=== PATIENT | male | born 1980 | race Caucasian/White ===

== ENCOUNTER 2017-05-26 14:53 | Emergency (ER) | payer MEDICAID ==
[2015-11-09 10:18] VITALS: BMI 32.4
[~2017-05-26 14:53] MED LIST: BACITRACIN15 GM TP; CHLORPROMAZINE200 MG PO; DAKIN'S 0.25%480 ML TOPICAL; DEPAKOTE ER500 MG PO; GAS-X125 M1 PO; KEPPRA500 MG PO; MYLANTA / MAALO30 ML PO; PROPRANOLOL HCL80 MG PO; SEROQUEL100 MG PO; SEROQUEL200 MG PO; SEROQUEL400 MG PO; ULTRAM50 MG PO
[2017-05-26 15:47] LABS: BASOPHILS 0.2 % (0-2); EOSINOPHILS 0.2 % (0-7); HEMATOCRIT 43.8 % (42.0-54.0); IMMATURE GRANULOCYTES 0.2 % (0-5); LYMPHOCYTES 26.9 % (15-50); MCH 29.1 pg (26.0-34.0); MCHC 34.2 g/dL (31.0-37.0); MEAN PLATELET VOLUME 9.6 fL (7.4-10.4); MONOCYTES 6.5 % (2-11); RBC 5.15 10x6/uL (4.20-6.10); RDW 14.3 % (11.5-14.5); WBC 5.1 10x3/uL (4.8-10.8)
[2017-05-26 15:52] LABS: PLATELET COUNT 214 10x3/uL (130-400)
[2017-05-26 15:56] LABS: APPEARANCE CLEAR (CLEAR); BILIRUBIN NEGATIVE (NEGATIVE); COLOR YELLOW (YELLOW); GLUCOSE NEGATIVE (NEGATIVE); KETONE NEGATIVE (NEGATIVE); LEUKOCYTE ESTERASE NEGATIVE (NEGATIVE); NITRITE NEGATIVE (NEGATIVE); PROTEIN NEGATIVE (NEGATIVE); SPECIFIC GRAVITY 1.015 (1.005-1.020); UROBILINOGEN NORMAL (NORMAL)
[2017-05-26 16:11] LABS: ALBUMIN 3.8 g/dL (3.4-5.0); ALKALINE PHOSPHATASE 155 U/L (46-116); ALT (SGPT) 60 U/L (10-68); BILIRUBIN - TOTAL 0.49 mg/dL (0.2-1.3); CALC OSMOLALITY 275 mosm/kg (275-300); CALCIUM 9.2 mg/dL (8.5-10.1); CARBON DIOXIDE 27.6 mmol/L (21.0-32.0); CHLORIDE - SERUM 103 mmol/L (98-107); CREATININE - SERUM 0.9 mg/dL (0.6-1.3); GLUCOSE 95 mg/dL (74-106); POTASSIUM - SERUM 3.6 mmol/L (3.5-5.1); PROTEIN - SERUM 8.3 g/dL (6.4-8.2); SODIUM 138 mmol/L (136-145); UREA NITROGEN 13 mg/dL (7-18); eGFR NON AFRICAN AMERICAN > 90 mL/min (90-120)
[2017-05-26 16:13] LABS: UDS - AMPHET NEGATIVE QUAL (NEGATIVE); UDS - BARB NEGATIVE QUAL (NEGATIVE); UDS - BENZO NEGATIVE QUAL (NEGATIVE); UDS - COCAINE NEGATIVE QUAL (NEGATIVE); UDS - METH NEGATIVE QUAL (NEGATIVE); UDS - OPIATE NEGATIVE QUAL (NEGATIVE); UDS - PCP NEGATIVE QUAL (NEGATIVE); UDS - THC NEGATIVE QUAL (NEGATIVE)
== END 2017-05-27 03:02 | disposition home or self-care (01) ==
LOC: D.ER 14:53
PROVIDERS: Family Medicine
DX: T14.91 Suicide attempt (principal); X83.8XXA Intentional self-harm by other specified means, initial encounter; Y93.89 Activity, other specified; Y92.89 Other specified places as the place of occurrence of the external cause; I10 Essential (primary) hypertension; Z91.5 Personal history of self-harm

== ENCOUNTER 2017-08-12 12:06 | Emergency (ER) | payer MEDICAID ==
[2015-11-09 10:18] VITALS: BMI 32.4
== END 2017-08-12 13:02 | disposition left against medical advice (07) ==
LOC: D.ER 12:06
DX: F41.9 Anxiety disorder, unspecified (principal); R46.89 Other symptoms and signs involving appearance and behavior; I10 Essential (primary) hypertension; Z86.59 Personal history of other mental and behavioral disorders

== ENCOUNTER 2017-08-13 05:46 | Emergency (ER) | payer MEDICAID ==
[2015-11-09 10:18] VITALS: BMI 32.4
[2017-08-13 06:17] LABS: BASOPHILS 0.3 % (0-2); EOSINOPHILS 0.3 % (0-7); HEMATOCRIT 32.7 % (42.0-54.0); HEMOGLOBIN 10.9 g/dL (13.5-17.5); IMMATURE GRANULOCYTES 0.1 % (0-5); LYMPHOCYTES 27.2 % (15-50); MCH 28.5 pg (26.0-34.0); MCHC 33.3 g/dL (31.0-37.0); MCV 85.4 fL (80.0-100.0); MEAN PLATELET VOLUME 10.3 fL (7.4-10.4); MONOCYTES 8.8 % (2-11); NEUTROPHILS 63.3 % (40-80); RBC 3.83 10x6/uL (4.20-6.10); RDW 13.6 % (11.5-14.5); WBC 7.4 10x3/uL (4.8-10.8)
[2017-08-13 06:21] LABS: PLATELET COUNT 405 10x3/uL (130-400)
[2017-08-13 06:21] LABS: UDS - AMPHET NEGATIVE QUAL (NEGATIVE); UDS - BARB NEGATIVE QUAL (NEGATIVE); UDS - BENZO POSITIVE QUAL (NEGATIVE); UDS - COCAINE NEGATIVE QUAL (NEGATIVE); UDS - OPIATE POSITIVE QUAL (NEGATIVE); UDS - PCP NEGATIVE QUAL (NEGATIVE); UDS - THC NEGATIVE QUAL (NEGATIVE)
[2017-08-13 06:32] LABS: ALBUMIN 3.4 g/dL (3.4-5.0); ANION GAP 14.2 mmol/L (8-16); BILIRUBIN - TOTAL 0.62 mg/dL (0.2-1.3); CALCIUM 9.2 mg/dL (8.5-10.1); CARBON DIOXIDE 25.5 mmol/L (21.0-32.0); CREATININE - SERUM 1.5 mg/dL (0.6-1.3); POTASSIUM - SERUM 3.7 mmol/L (3.5-5.1); PROTEIN - SERUM 7.2 g/dL (6.4-8.2)
[2017-08-13 06:33] LABS: APPEARANCE CLEAR (CLEAR); BILIRUBIN NEGATIVE (NEGATIVE); COLOR YELLOW (YELLOW); GLUCOSE NEGATIVE (NEGATIVE); KETONE NEGATIVE (NEGATIVE); NITRITE NEGATIVE (NEGATIVE); PROTEIN TRACE mg/dL (NEGATIVE); SPECIFIC GRAVITY 1.015 (1.005-1.020); UROBILINOGEN NORMAL (NORMAL)
[2017-08-13 06:35] LABS: BACTERIA FEW /hpf (NONE SEEN); EPITHELIAL CELLS 0-5 /hpf (0-5); RED CELLS - URINE 0-5 /hpf (0-5); WHITE CELLS - URINE 0-5 /hpf (0-5)
== END 2017-08-13 05:49 | disposition home or self-care (01) ==
LOC: D.ER 05:46
PROVIDERS: Emergency Medicine
DX: R45.851 Suicidal ideations (principal); Z86.59 Personal history of other mental and behavioral disorders; I10 Essential (primary) hypertension; Z91.5 Personal history of self-harm; F17.200 Nicotine dependence, unspecified, uncomplicated

== ENCOUNTER 2017-09-22 17:52 | Emergency (ER) | payer SELFPAY ==
[2015-11-09 10:18] VITALS: BMI 32.4
== END 2017-09-22 20:55 | disposition home or self-care (01) ==
LOC: D.ER 17:52
DX: M25.561 Pain in right knee (principal); F41.9 Anxiety disorder, unspecified; I10 Essential (primary) hypertension

== ENCOUNTER 2017-09-23 07:42 | Emergency (ER) | payer SELFPAY ==
[2015-11-09 10:18] VITALS: BMI 32.4
== END 2017-09-23 08:36 | disposition home or self-care (01) ==
LOC: D.ER 07:42
DX: F33.9 Major depressive disorder, recurrent, unspecified (principal); S11.81XA Laceration without foreign body of other specified part of neck, initial encounter; X78.8XXA Intentional self-harm by other sharp object, initial encounter; Y93.89 Activity, other specified; Y92.019 Unspecified place in single-family (private) house as the place of occurrence of the external cause; Z76.5 Malingerer [conscious simulation]; I10 Essential (primary) hypertension; Z86.59 Personal history of other mental and behavioral disorders

== ENCOUNTER 2017-09-29 00:29 | Emergency (ER) | payer SELFPAY ==
[2015-11-09 10:18] VITALS: BMI 32.4
== END 2017-09-29 01:15 | disposition home or self-care (01) ==
LOC: D.ER 00:29
DX: L03.115 Cellulitis of right lower limb (principal); Y28.8XXA Contact with other sharp object, undetermined intent, initial encounter; Y93.89 Activity, other specified; Y92.89 Other specified places as the place of occurrence of the external cause; I10 Essential (primary) hypertension; Z86.59 Personal history of other mental and behavioral disorders

== ENCOUNTER 2017-10-05 07:54 | Emergency (ER) | payer SELFPAY ==
[2015-11-09 10:18] VITALS: BMI 32.4
== END 2017-10-05 09:05 | disposition home or self-care (01) ==
LOC: D.ER 07:54
DX: L03.116 Cellulitis of left lower limb (principal); L03.115 Cellulitis of right lower limb; M79.605 Pain in left leg; M79.604 Pain in right leg; I10 Essential (primary) hypertension

== ENCOUNTER 2017-10-07 00:38 | Emergency (ER) | payer SELFPAY ==
[2015-11-09 10:18] VITALS: BMI 32.4
== END 2017-10-07 02:20 | disposition home or self-care (01) ==
LOC: D.ER 00:38
DX: J11.1 Influenza due to unidentified influenza virus with other respiratory manifestations (principal); I10 Essential (primary) hypertension

== ENCOUNTER 2017-10-07 04:21 | Emergency (ER) | payer SELFPAY ==
[2015-11-09 10:18] VITALS: BMI 32.4
== END 2017-10-07 04:44 | disposition home or self-care (01) ==
LOC: D.ER 04:21
DX: L03.116 Cellulitis of left lower limb (principal); I10 Essential (primary) hypertension; Z86.59 Personal history of other mental and behavioral disorders; F17.200 Nicotine dependence, unspecified, uncomplicated

== ENCOUNTER 2017-10-08 18:28 | Emergency (ER) | payer MEDICARE ==
[2015-11-09 10:18] VITALS: BMI 32.4
[2017-10-08 19:15] LABS: BASOPHILS 0.2 % (0-2); EOSINOPHILS 0 % (0-7); HEMATOCRIT 35.4 % (42.0-54.0); HEMOGLOBIN 11.3 g/dL (13.5-17.5); IMMATURE GRANULOCYTES 0.2 % (0-5); LYMPHOCYTES 39.4 % (15-50); MCH 26.9 pg (26.0-34.0); MCHC 31.9 g/dL (31.0-37.0); MCV 84.3 fL (80.0-100.0); MEAN PLATELET VOLUME 9.9 fL (7.4-10.4); MONOCYTES 7.8 % (2-11); NEUTROPHILS 52.4 % (40-80); PLATELET COUNT 377 10x3/uL (130-400); RDW 14.6 % (11.5-14.5); WBC 5.5 10x3/uL (4.8-10.8)
[2017-10-08 19:17] LABS: APPEARANCE HAZY (CLEAR); BILIRUBIN NEGATIVE (NEGATIVE); COLOR YELLOW (YELLOW); GLUCOSE NEGATIVE (NEGATIVE); KETONE NEGATIVE (NEGATIVE); NITRITE NEGATIVE (NEGATIVE); PROTEIN NEGATIVE (NEGATIVE); SPECIFIC GRAVITY 1.025 (1.005-1.020); UROBILINOGEN NORMAL (NORMAL)
[2017-10-08 19:22] LABS: UDS - AMPHET NEGATIVE QUAL (NEGATIVE); UDS - BARB NEGATIVE QUAL (NEGATIVE); UDS - BENZO NEGATIVE QUAL (NEGATIVE); UDS - COCAINE NEGATIVE QUAL (NEGATIVE); UDS - OPIATE NEGATIVE QUAL (NEGATIVE); UDS - PCP NEGATIVE QUAL (NEGATIVE); UDS - THC POSITIVE QUAL (NEGATIVE)
[2017-10-08 19:23] LABS: ALKALINE PHOSPHATASE 163 U/L (46-116); ALT (SGPT) 29 U/L (10-68); BILIRUBIN - TOTAL 0.22 mg/dL (0.2-1.3); CALC OSMOLALITY 277 mosm/kg (275-300); CALCIUM 9.8 mg/dL (8.5-10.1); CARBON DIOXIDE 27.8 mmol/L (21.0-32.0); CHLORIDE - SERUM 102 mmol/L (98-107); CREATININE - SERUM 0.7 mg/dL (0.6-1.3); GLUCOSE 89 mg/dL (74-106); POTASSIUM - SERUM 4.5 mmol/L (3.5-5.1); PROTEIN - SERUM 7.7 g/dL (6.4-8.2); SODIUM 139 mmol/L (136-145); UREA NITROGEN 15 mg/dL (7-18); eGFR NON AFRICAN AMERICAN > 90 mL/min (90-120)
[2017-10-08 19:35] LABS: EPITHELIAL CELLS 0-5 /hpf (0-5); RED CELLS - URINE 0-5 /hpf (0-5)
[2017-10-08 19:36] LABS: BACTERIA MANY /hpf (NONE SEEN); CALCIUM OXALATE CRYSTALS 0-5 /hpf (NONE SEEN); HYALINE CAST OCC /lpf (NONE SEEN); MUCUS >1+ /lpf (NONE SEEN)
== END 2017-10-09 07:55 | disposition home or self-care (01) ==
LOC: D.ER 18:28
PROVIDERS: Physician Assistant Medical
DX: R45.851 Suicidal ideations (principal); F41.9 Anxiety disorder, unspecified; F23 Brief psychotic disorder

== ENCOUNTER 2017-10-12 23:47 | Emergency (ER) | payer MEDICARE ==
[2015-11-09 10:18] VITALS: BMI 32.4
== END 2017-10-13 00:58 | disposition home or self-care (01) ==
LOC: D.ER 23:47
DX: M79.652 Pain in left thigh (principal); M79.651 Pain in right thigh; G89.29 Other chronic pain; I10 Essential (primary) hypertension; Z91.5 Personal history of self-harm

== ENCOUNTER 2017-10-21 00:57 | Emergency (ER) | payer MEDICARE ==
[2015-11-09 10:18] VITALS: BMI 32.4
[2017-10-21 01:42] LABS: BASOPHILS 0.3 % (0-2); EOSINOPHILS 0.3 % (0-7); HEMATOCRIT 37.9 % (42.0-54.0); HEMOGLOBIN 12.5 g/dL (13.5-17.5); LYMPHOCYTES 53.2 % (15-50); MCH 26.4 pg (26.0-34.0); MCV 80.1 fL (80.0-100.0); MEAN PLATELET VOLUME 10.4 fL (7.4-10.4); MONOCYTES 10.1 % (2-11); NEUTROPHILS 36.1 % (40-80); RBC 4.73 10x6/uL (4.20-6.10); RDW 14.1 % (11.5-14.5); WBC 3.3 10x3/uL (4.8-10.8)
[2017-10-21 01:47] LABS: PLATELET COUNT 255 10x3/uL (130-400)
[2017-10-21 01:54] LABS: ALBUMIN 3.8 g/dL (3.4-5.0); ALKALINE PHOSPHATASE 140 U/L (46-116); ALT (SGPT) 23 U/L (10-68); BILIRUBIN - TOTAL 0.26 mg/dL (0.2-1.3); CALC OSMOLALITY 268 mosm/kg (275-300); CALCIUM 9.2 mg/dL (8.5-10.1); CARBON DIOXIDE 28.5 mmol/L (21.0-32.0); CHLORIDE - SERUM 96 mmol/L (98-107); GLUCOSE 99 mg/dL (74-106); PROTEIN - SERUM 8.2 g/dL (6.4-8.2); SODIUM 134 mmol/L (136-145); UREA NITROGEN 15 mg/dL (7-18); eGFR NON AFRICAN AMERICAN 89 mL/min (90-120)
[2017-10-21 01:58] LABS: UDS - AMPHET NEGATIVE QUAL (NEGATIVE); UDS - BARB NEGATIVE QUAL (NEGATIVE); UDS - BENZO NEGATIVE QUAL (NEGATIVE); UDS - COCAINE NEGATIVE QUAL (NEGATIVE); UDS - OPIATE NEGATIVE QUAL (NEGATIVE); UDS - PCP NEGATIVE QUAL (NEGATIVE); UDS - THC NEGATIVE QUAL (NEGATIVE)
[2017-10-21 01:59] LABS: APPEARANCE CLEAR (CLEAR); BILIRUBIN NEGATIVE (NEGATIVE); COLOR YELLOW (YELLOW); GLUCOSE NEGATIVE (NEGATIVE); KETONE NEGATIVE (NEGATIVE); NITRITE NEGATIVE (NEGATIVE); PROTEIN NEGATIVE (NEGATIVE); SPECIFIC GRAVITY 1.015 (1.005-1.020); UROBILINOGEN NORMAL (NORMAL)
== END 2017-10-21 17:32 | disposition home or self-care (01) ==
LOC: D.ER 00:57
PROVIDERS: Family Medicine
DX: R45.851 Suicidal ideations (principal); F60.9 Personality disorder, unspecified; Z91.5 Personal history of self-harm; I10 Essential (primary) hypertension

== ENCOUNTER 2017-10-29 03:57 | Emergency (ER) | payer MEDICARE ==
[2015-11-09 10:18] VITALS: BMI 32.4
[2017-10-29 04:25] LABS: APPEARANCE CLEAR (CLEAR); COLOR YELLOW (YELLOW)
[2017-10-29 04:26] LABS: BILIRUBIN NEGATIVE (NEGATIVE); GLUCOSE NEGATIVE (NEGATIVE); KETONE NEGATIVE (NEGATIVE); NITRITE NEGATIVE (NEGATIVE); PROTEIN NEGATIVE (NEGATIVE); UROBILINOGEN NORMAL (NORMAL)
[2017-10-29 04:28] LABS: UDS - AMPHET NEGATIVE QUAL (NEGATIVE); UDS - BARB NEGATIVE QUAL (NEGATIVE); UDS - BENZO NEGATIVE QUAL (NEGATIVE); UDS - COCAINE NEGATIVE QUAL (NEGATIVE); UDS - OPIATE NEGATIVE QUAL (NEGATIVE); UDS - PCP NEGATIVE QUAL (NEGATIVE); UDS - THC NEGATIVE QUAL (NEGATIVE)
[2017-10-29 04:34] LABS: BASOPHILS 0.2 % (0-2); EOSINOPHILS 0.2 % (0-7); HEMATOCRIT 36.3 % (42.0-54.0); HEMOGLOBIN 11.6 g/dL (13.5-17.5); IMMATURE GRANULOCYTES 0.1 % (0-5); LYMPHOCYTES 36.7 % (15-50); MCH 26.2 pg (26.0-34.0); MCV 82.1 fL (80.0-100.0); MEAN PLATELET VOLUME 10.2 fL (7.4-10.4); MONOCYTES 5.8 % (2-11); RBC 4.42 10x6/uL (4.20-6.10); RDW 14.1 % (11.5-14.5); WBC 8.2 10x3/uL (4.8-10.8)
[2017-10-29 04:42] LABS: PLATELET COUNT 374 10x3/uL (130-400)
[2017-10-29 04:46] LABS: ALBUMIN 3.6 g/dL (3.4-5.0); ALKALINE PHOSPHATASE 132 U/L (46-116); ALT (SGPT) 19 U/L (10-68); BILIRUBIN - TOTAL 0.21 mg/dL (0.2-1.3); CALC OSMOLALITY 275 mosm/kg (275-300); CALCIUM 9.1 mg/dL (8.5-10.1); CHLORIDE - SERUM 102 mmol/L (98-107); CREATININE - SERUM 0.9 mg/dL (0.6-1.3); GLUCOSE 98 mg/dL (74-106); POTASSIUM - SERUM 3.9 mmol/L (3.5-5.1); PROTEIN - SERUM 7.8 g/dL (6.4-8.2); SODIUM 137 mmol/L (136-145); UREA NITROGEN 17 mg/dL (7-18); eGFR NON AFRICAN AMERICAN > 90 mL/min (90-120)
== END 2017-10-29 16:17 | disposition home or self-care (01) ==
LOC: D.ER 03:57
PROVIDERS: Emergency Medicine
DX: R45.851 Suicidal ideations (principal); F33.9 Major depressive disorder, recurrent, unspecified

== ENCOUNTER 2017-10-30 18:48 | Emergency (ER) | payer MEDICARE ==
[2015-11-09 10:18] VITALS: BMI 32.4
[2017-10-30 19:26] LABS: HEMATOCRIT 33.7 % (42.0-54.0); HEMOGLOBIN 10.8 g/dL (13.5-17.5); LYMPHOCYTES 23.4 % (15-50); MCH 26.2 pg (26.0-34.0); MCV 81.6 fL (80.0-100.0); MEAN PLATELET VOLUME 10.2 fL (7.4-10.4); NEUTROPHILS 70.2 % (40-80); PLATELET COUNT 278 10x3/uL (130-400); RBC 4.13 10x6/uL (4.20-6.10); RDW 13.7 % (11.5-14.5)
[2017-10-30 19:42] LABS: ALBUMIN 3.5 g/dL (3.4-5.0); ALKALINE PHOSPHATASE 122 U/L (46-116); ALT (SGPT) 18 U/L (10-68); BILIRUBIN - TOTAL 0.14 mg/dL (0.2-1.3); CALC OSMOLALITY 278 mosm/kg (275-300); CALCIUM 9.2 mg/dL (8.5-10.1); CARBON DIOXIDE 25.8 mmol/L (21.0-32.0); CHLORIDE - SERUM 106 mmol/L (98-107); CREATININE - SERUM 0.8 mg/dL (0.6-1.3); GLUCOSE 107 mg/dL (74-106); POTASSIUM - SERUM 3.6 mmol/L (3.5-5.1); PROTEIN - SERUM 7.4 g/dL (6.4-8.2); SODIUM 140 mmol/L (136-145); UREA NITROGEN 13 mg/dL (7-18); eGFR NON AFRICAN AMERICAN > 90 mL/min (90-120)
[2017-10-30 19:51] LABS: UDS - AMPHET NEGATIVE QUAL (NEGATIVE); UDS - BARB NEGATIVE QUAL (NEGATIVE); UDS - BENZO NEGATIVE QUAL (NEGATIVE); UDS - COCAINE NEGATIVE QUAL (NEGATIVE); UDS - OPIATE NEGATIVE QUAL (NEGATIVE); UDS - PCP NEGATIVE QUAL (NEGATIVE); UDS - THC NEGATIVE QUAL (NEGATIVE)
[2017-10-30 20:11] LABS: APPEARANCE CLEAR (CLEAR); BILIRUBIN NEGATIVE (NEGATIVE); COLOR YELLOW (YELLOW); GLUCOSE NEGATIVE (NEGATIVE); KETONE NEGATIVE (NEGATIVE); NITRITE NEGATIVE (NEGATIVE); PROTEIN NEGATIVE (NEGATIVE); SPECIFIC GRAVITY 1.025 (1.005-1.020); UROBILINOGEN NORMAL (NORMAL)
[2017-10-30 20:13] LABS: BACTERIA FEW /hpf (NONE SEEN); MUCUS >1+ /lpf (NONE SEEN); RED CELLS - URINE OCC /hpf (0-5)
== END 2017-10-31 09:50 | disposition home or self-care (01) ==
LOC: D.ER 18:48
PROVIDERS: Family Medicine
DX: R45.851 Suicidal ideations (principal); I10 Essential (primary) hypertension; F60.9 Personality disorder, unspecified; Z91.5 Personal history of self-harm; F17.200 Nicotine dependence, unspecified, uncomplicated

== ENCOUNTER 2017-10-31 18:06 | Emergency (ER) | payer MEDICARE ==
[2015-11-09 10:18] VITALS: BMI 32.4
== END 2017-10-31 18:47 | disposition home or self-care (01) ==
LOC: D.ER 18:06
DX: R45.851 Suicidal ideations (principal); I10 Essential (primary) hypertension